=== PATIENT | male | born 1985 | race Caucasian/White ===

== ENCOUNTER 2018-02-05 16:08 | Emergency (ER) | payer MEDICAID ==
--- NOTE | 2018-02-05 17:07 | EDM.PDOC ---
ED HPI GENERAL MEDICAL PROBLEM - General Chief Complaint: Lower Extremity Injury/Pain Stated Complaint: FELL AND INJURED LEFT FOOT Time Seen by Provider: 02/05/18 16:23 Source of Information: Reports: Patient History Limitations: Reports: No Limitations - History of Present Illness INITIAL COMMENTS - FREE TEXT/NARRATIVE: 32 yo male presents to ER with pain in left foot. yesterday jumped off stump landing on rock. he was able to walk after injury. no other injuries - Related Data Allergies Allergy/AdvReac Type Severity Reaction Status Date / Time No Known Allergies Allergy Verified 02/05/18 16:27 Home Meds: Home Meds Divalproex Sodium [Depakote ER] 3 tab PO BID 02/05/18 [History] Past Medical History - Past Surgical History Musculoskeletal Surgical History: Reports: Arthroscopic Knee Social & Family History - Tobacco Use Smoking Status *Q: Former Smoker Used Tobacco, but Quit: Yes Month/Year Tobacco Last Used: 12/07 Review of Systems - Review of Systems Review Of Systems: See Below Constitutional: Denies: Chills, Fever Respiratory: Denies: Shortness of Breath, Wheezing Cardiovascular: Denies: Chest Pain ED EXAM, GENERAL - Physical Exam Exam: See Below Exam Limited By: No Limitations General Appearance: Alert, WD/WN, No Apparent Distress Respiratory/Chest: No Respiratory Distress. No: Crackles, Rhonchi, Wheezing Cardiovascular: Regular Rate, Rhythm Extremities: Other (2.5 cm hemo filled vesicle MP joint 5th digit) Course - Vital Signs Last Recorded V/S: Last Vital Signs Temp 36.8 C 02/05/18 16:33 Pulse 97 02/05/18 16:33 Resp 14 02/05/18 16:33 BP 143/95 H 02/05/18 16:33 Pulse Ox 98 02/05/18 16:33 - Orders/Labs/Meds Orders: Active Orders 24 hr Category Date Time Status Foot 2V Lt [CR] Stat Exams 02/05/18 16:51 Taken - Re-Assessments/Exams Free Text/Narrative Re-Assessment/Exam: 02/05/18 17:20 preliminary review of foot x-ray suspicious for fracture area at the distil end of metatarsal. will place pt in hard sole shoe and instruct to follow-up with primary care Tuesday Departure - Departure Time of Disposition: 17:22 Disposition: Home, Self-Care 01 Condition: Good Clinical Impression: Metatarsal bone fracture Qualifiers: Encounter type: initial encounter Metatarsal bone: fifth Fracture type: closed Fracture alignment: nondisplaced Laterality: left Qualified Code(s): S92.355A - Nondisplaced fracture of fifth metatarsal bone, left foot, initial encounter for closed fracture - Discharge Information Instructions: Metatarsal Fracture With Rehab-SportsMed Referrals: PCP,None [Primary Care Provider] - Forms: ED Department Discharge Additional Instructions: ice at least 3 times daily for the next 72 hours tylenol 1000 mg every 6 hours as needed for pain walking shoe in place through tuesday when you follow-up with your primary care provider - My Orders Last 24 Hours: My Active Orders 02/05/18 16:51 Foot 2V Lt [CR] Stat - Assessment/Plan Last 24 Hours: My Active Orders 02/05/18 16:51 Foot 2V Lt [CR] Stat
--- NOTE | 2018-02-06 09:56 | CR ---
Foot 2V Lt CLINICAL HISTORY: Trauma FINDINGS: There is no acute fracture or dislocation within the foot. No destructive changes are prese nt. IMPRESSION: No acute bony process.
== END 2018-02-05 17:47 | disposition home or self-care (01) ==
LOC: JP.ED 16:08
DX: S92.355A Nondisplaced fracture of fifth metatarsal bone, left foot, initial encounter for closed fracture (principal); Z87.891 Personal history of nicotine dependence; W19.XXXA Unspecified fall, initial encounter
CPT/HCPCS: 73620-26-LT; 73620-LT; 99284